=== PATIENT | female | born 1950 | race Caucasian/White ===

== ENCOUNTER 2025-04-06 21:52 | Observation (INO) | payer MEDICARE, OTHER, SELFPAY ==
[2025-04-06] VITALS (8 sets, daily range): BP systolic 158–180; BP diastolic 77–90; BMI 27.5
[2025-04-06 16:48] LABS: Hematocrit 40.1 % (37.0-47.0); Hemoglobin 13.9 g/dL (12.0-16.0); Mean Corp Hgb Conc. 34.7 g/dL (33.0-37.0); Mean Corpuscular Volume 88.7 fL (81.0-99.0); Nucleated Red Blood Cells % 0 %; Platelet Count 210 10^3/uL (130-400); Red Cell Dist. Width 14.2 % (11.5-14.5)
[2025-04-06 17:12] LABS: ALT (SGPT) 15 U/L (0-35); AST (SGOT) 21 U/L (14-36); Albumin 4.2 g/dl (3.5-5.0); Alkaline Phosphatase 74 U/L (38-126); Blood Urea Nitrogen 13 mg/dl (7-17); Calcium 8.7 mg/dl (8.4-10.2); Carbon Dioxide 20 mmol/L (22-30); Chloride 111 mmol/L (98-107); Estimated Creatinine Clearance 66 ml/min; Glucose 112 mg/dl (70-99); Potassium 3.7 mmol/L (3.5-5.1); Sodium 138 mmol/L (135-145); Total Protein 6.5 g/dl (6.3-8.2); eGFR > 60.00
[2025-04-06 17:21] LABS: Troponin I < 0.012 ng/ml
--- NOTE | 2025-04-06 17:47 | ED.GENMED ---
History of Present Illness
General
Chief Complaint: Chest Pain
Time Seen by Provider: 04/06/25 16:42
History of Present Illness
History of Present Illness:
75-year-old female presenting to the emergency department for midsternal chest discomfort. Patient reports around 2 PM this afternoon she was doing laundry and had a sharp pain in her chest. Symptoms lasted about 20 minutes, reports a tightening
sensation. She then started to feel pain in the back of her teeth. She denies any history of cardiac disease. She denies ever having this pain in the past. Symptoms have since resolved. She did call medics, administered 4 aspirin prior to
arrival. Symptoms have completely resolved. Denies abdominal pain or GI symptoms. Does note that she ate some chicken tenders prior to onset of symptoms, however has tolerated these in the past without any issue. Denies additional acute medical
complaints
Phy Exam
Physical Exam
Physical Exam:
General: Well-appearing, no clinical signs of dehydration, nontoxic and in no acute distress
HEENT: protecting airway
Neck: appears supple
CV: Normal heart rate, regular rhythm
Resp: No accessory muscle use, no increased work of breathing, lungs clear to auscultation bilaterally
Abd: Soft and non-distended, no tenderness to palpation
Extremities: No deformities, no swelling
Neuro: alert, no focal neurologic deficit
: deferred
Rectal: deferred
Psych: Normal affect
Skin: Intact
Scores
Heart Score for Chest Pain Patients
STEMI patient?: No
History: Moderately Suspicious
ECG: Normal
Age: >/= 65 years
Risk Factors: 1 or 2 Risk Factors
Troponin: </= Normal Limit
Heart Score for Chest Pain Patients: 4
Heart Score Risk: 20.3% MACE over next 6 weeks
Course
Orders/Labs/Results
Orders:
Orders
04/06/25 16:36
Electrocardiogram (*1) Urgent
Reason for Study: Chest Pain
EKG- Treatment ONCE
04/06/25 16:40
Complete Blood Count/With Diff Urgent
Comprehensive Metabolic Panel Urgent
Troponin I Urgent
04/06/25 17:20
Chest [CR Chest - 2 Views ] Urgent
Comment:
Reason For Exam: chest pain
04/06/25 17:25
EKG- Treatment ONCE
04/06/25 19:38
Troponin I Urgent
04/06/25 21:40
Electrocardiogram (*1) Urgent
Reason for Study: Chest Pain
Abnormal Lab Results
04/06/25
16:40
Chloride 111 H mmol/L
(98-107)
Carbon Dioxide 20 L mmol/L
(22-30)
Glucose 112 H mg/dl
(70-99)
04/06/25 16:40
04/06/25 16:40
Vital Signs
Initial and Last Documented VS:
Initial Vital Signs
Temp Pulse Resp BP Pulse Ox
98.2 F 78 18 167/84 98
04/06/25 16:32 04/06/25 16:32 04/06/25 16:32 04/06/25 16:32 04/06/25 16:32
Last Documented Vital Signs
Temp Pulse Resp BP Pulse Ox
98.2 F 64 18 161/83 98
04/06/25 16:32 04/06/25 19:00 04/06/25 19:00 04/06/25 19:00 04/06/25 17:47
MDM/Problems Addressed
MDM/Problems Addressed:
75-year-old female presenting for episode of chest tightness prior to arrival. Vital signs significant for hypertension.
On exam, patient is resting comfortably, currently asymptomatic. EKG is nonischemic. However, concerning story. No significant cardiac risk factors. Will obtain laboratory analysis including troponin and chest x-ray imaging and continue to
closely monitor.
18:45 - Initial troponin is negative, chest x-ray without acute cardiopulmonary disease. Remains asymptomatic. Plan for repeat troponin and repeat EKG within 3-hour interval
20:35 - Repeat EKG with subtle dynamic changes with now T wave inversions in the inferior leads. Repeat troponin undetectable. Discussion with cardiology, plan for admission. Patient remained stable, mildly hypertensive. Cardiology recommending
repeat troponin in 6 hours.
*Pulse Oximetry
SaO2: 98
Oxygen Mode of Delivery: Room air
Patient hypoxic: no
*EKG
Interpreted by ED Provider?: Yes
EKG Intrepretation Date: 04/06/25
EKG Intrepretation Time: 19:07
Interpretation: normal
Heart Rate: 76
Rate: normal
Rhythm: sinus
[place]: normal axis
Interval: normal interval
QRS Pattern: normal QRS
Ischemia: no ischemia
*Critical Care Note
Total Time (30-74mins, 75-104mins- exclusive of procedures): Not Applicable
ED Attending Note
-
Portions of this chart may have been created with voice recognition software.� Occasional wrong word or��sound alike� substitutions may have occurred due to the inherent limitations of voice recognition software.
Discharge Plan
Departure
Referrals:
Kendall Ledesma MD [Family Provider, [facility]]
Interventions
Interventions:
*Risk Screen - Suicide Last Done: 04/06/25 16:32
*General Assessment Last Done: 04/06/25 16:32
*Neglect/Abuse Screening Last Done: 04/06/25 16:32
ED- Cardiac Assessment Last Done: 04/06/25 17:00
Discharge Date and Time
Print Language: CYMRAES
[2025-04-06 20:14] LABS: Troponin I < 0.012 ng/ml
--- NOTE | 2025-04-06 20:43 | HPS.HSE ---
Family Physician
-
Family Physician: Kendall Ledesma
Chief Complaint
-
chest pain
History of Present Illness
Patient is a 75-year-old female with past medical history significant for hyperlipidemia who presented to [facility] ED for evaluation of chest pain. Patient reports that she was gathering some items in her basement came up the steps, put somethings
together and than sat down with epigastric chest discomfort that radiated to bilateral jawlines. She denies any other symptoms. Patient denies any previous episode similar to this. Denies recent illness, fever, chills, cough, shortness of breath,
nausea, vomiting or change in bowel or bladder.
Medical History
Past Medical History
Past Medical History: Reports Other
Additional Past Medical History:
hyperlipidemia
Past Surgical History: Reports Other
Additional Past Surgical History:
appendectomy
tonsillectomy
cholecystectomy
Social History
Tobacco: Non-smoker
Alcohol: Occasional
Drug: None
Living: Alone
Family History
Family History: Other (Mother: Breast Ca; Father: CAD )
Allergies / Home Medications
Allergies reflects when Allergies were last updated in [employer].
Home Medications with original date entered in [employer]
Allergy/Medication List:
Allergies
Allergy/AdvReac Type Severity Reaction Status Date / Time
coffee (Coffea arabica) Allergy Rash Verified 04/06/25 16:32
Sulfa (Sulfonamide Allergy Rash Verified 04/06/25 16:32
Antibiotics)
Home Medications
CoQ-10 300 mg PO DAILY 04/06/25
Unknown Vitamins/Supplements 1 dose PO NOON 04/06/25
pitavastatin calcium 4 mg tablet (Livalo) 4 mg PO DAILY 04/06/25
therapeutic multivitamin 1 tab PO NOON 04/06/25
Review of Systems
-
History Source: Patient
Constitutional: Reports No Symptoms
EENT: Reports No Symptoms
Respiratory: Reports No Symptoms
Cardiac: Reports Chest Pain (radiated from epigastric to jaw )
Abdomen/GI: Reports No Symptoms
: Reports No Symptoms
Musculoskeletal: Reports No Symptoms
Skin: Reports No Symptoms
Neurological: Reports No Symptoms
Endocrine: Reports No Symptoms
Hematologic/Lymphatic: Reports No Symptoms
Psych: Reports No Symptoms
Physical Exam
Vital Signs
Vital Signs
Temp Pulse Resp BP Pulse Ox
98.2 F 64 18 161/83 98
04/06/25 16:32 04/06/25 19:00 04/06/25 19:00 04/06/25 19:00 04/06/25 17:47
Physical Exam
General: Well Developed, Well Nourished and No Apparent Distress
HEENT: NormoCephalic, Moist mucous membranes and Atraumatic
Respiratory: Clear and Non Labored Respirations
Cardiac: S1/S2 and Regular Rhythm
GI: Soft, Non Tender, Non Distended and Normal Bowel Sounds
Rectal: Deferred by Provider
Genito-urinary: Deferred by me
Musculoskeletal: No Clubbing, No Cyanosis and No Edema
Skin: Warm and IV/Catheter Site
Neuro: Awake, AO x 3 and Nonfocal/grossly intact
Psych: Calm and Intact Judgment/Insight
Laboratory Results
-
04/06/25 16:40
04/06/25 16:40
Laboratory Results
Total Bilirubin 0.7 mg/dl (0.2-1.3) 04/06/25 16:40
AST 21 U/L (14-36) 04/06/25 16:40
ALT 15 U/L (0-35) 04/06/25 16:40
Alkaline Phosphatase 74 U/L (38-126) 04/06/25 16:40
Troponin I Cancelled 04/06/25 21:40
Data Reviewed
-
Diagnostic Radiology: Report Reviewed by me (CXR: No acute cardiopulmonary abnormality.)
Medical Tests (Nuc Med, Echo, EKG etc): Report Reviewed by me (EKG: SINUS RHYTHM WITH 1ST DEGREE A-V BLOCK ABNORMAL QRS-T ANGLE, CONSIDER PRIMARY T WAVE ABNORMALITY)
Lab Data: Labs Reviewed by me
Impression/Plan
-
IMPRESSION/PLAN:
#chest pain
Trop <0.012, 0.012
EKG: SINUS RHYTHM WITH 1ST DEGREE A-V BLOCK
ABNORMAL QRS-T ANGLE, CONSIDER PRIMARY T WAVE ABNORMALITY
CXR: No acute cardiopulmonary abnormality.
- Admit to telemetry
- Consult Cardiology
- trend troponin
#hyperlipidemia
- continue pitavastatin
Code status: full code
DVT prophylaxis: lovenox sq
--- NOTE | 2025-04-06 20:55 | W.PN.UPDATE ---
Update Note
Progress Note Update
Patient seen in conjunction with [facility]OCI[facility]. I agree with findings on history and physical. I concur with assessment and plan unless stated otherwise.
Is a 75-year-old female with past medical history of hyperlipidemia who presents to the emergency department with episode of chest pain. She reported that this occurred while she was doing laundry and lasted for about 20 minutes radiating to the
jaw. She currently is chest pain-free. She had gotten a dose of aspirin 324 mg prior to arrival.
Denies prior history of CAD. Denies any recent injuries of exertional chest pain, exertional dyspnea, shortness of breath orthopnea PND or palpitations. Push
Lower extremity swelling.
In the emergency room she was hypertensive to 161/83 otherwise vital signs were stable. ECG shows sinus rhythm at a rate of [address] or T wave changes. The 1st and 2nd troponins were negative. CBC was completely unremarkable.
Electrolytes were normal. BUN and creatinine were normal.
On evaluation of the ECG she had slight T wave abnormality in lead III which seems to have gone from flattened to normal on repeat.
Assessment and plan
75-year-old female without any known history of CAD presents with feel atypical chest pain now resolved. ECG appears to me to be unremarkable. She has 2 negative troponins. Case discussed with cardiology who recommended admission
- Admit to telemetry observation
- Nitroglycerin as needed chest pain
- Checking lipid panel, A1c
- Echocardiogram in a.m.
- Continue to trend troponin/ECG in 6hours
- Cardiology consult
- Continue statin for now
- Continue aspirin 81 mg daily for now
DVT prophylaxis�Lovenox subcu
CODE STATUS�full code
[2025-04-07 00:18] LABS: Troponin I < 0.012 ng/ml
[2025-04-07 03:08] VITALS: BP 156/88
[2025-04-07 06:01] LABS: Blood Urea Nitrogen 13 mg/dl (7-17); Calcium 8.8 mg/dl (8.4-10.2); Carbon Dioxide 24 mmol/L (22-30); Chloride 113 mmol/L (98-107); Estimated Creatinine Clearance 77 ml/min; Glucose 99 mg/dl (70-99); HDL Cholesterol 58 mg/dl; LDL Cholesterol, Calculated 100 mg/dl; Potassium 4.0 mmol/L (3.5-5.1); Sodium 139 mmol/L (135-145); Very Low Density Lipoprotein 20 mg/dl (0-30); eGFR > 60.00
[2025-04-07 06:05] LABS: Troponin I < 0.012 ng/ml
[2025-04-07 07:30] VITALS: BP 157/85
[2025-04-07 09:00] LABS: Hepatitis C Antibody Negative (Negative)
--- NOTE | 2025-04-07 09:07 | CON.CAR ---
Consultation
Consultation Request
Date/Time Consultation Requested: April 06, 2025 8:30 PM
Date/Time Consultation Performed: April 07, 2025 8 AM
Requesting Provider: Hospitalist
Performing Provider: Jim Ferro
Reason for Consultation: Chest pain
Medical History
-
Chief Complaint: Chest pain
History of Present Illness:
75-year-old female with past medical history of dyslipidemia who is here because of sudden onset of chest pain. She tells me that she had the onset of chest pain after doing laundry and organizing things in her basement. She was not necessarily
moving about when this occurred. It started in the epigastric area was significant and then went up into her jaw. When she felt it in her jaws when she became nervous. She then took 4 baby aspirin and called the ambulance. Her symptoms lasted
approximately 20 to 25 minutes. They resolved thereafter and she was brought to [facility]. There is no associated symptoms including shortness of breath, diaphoresis, or other lower extremity edema. Otherwise, she has felt fine. Workup
in the emergency room showed with serial EKGs inferior T wave inversion which have since resolved. Her troponins have all been normal.
Past Medical History
Past Medical History: Other (Dyslipidemia)
Past Surgical History: Appendectomy, Cholecystectomy and Other (Tonsillectomy)
Social History
Tobacco: Non-Smoker
Alcohol: Occasional
Drug: None
Personal:
Living: Alone
Employment: Retired
Allergies / Home Medications
Allergy/AdvReac Type Severity Reaction Status Date / Time
coffee (Coffea arabica) Allergy Rash Verified 04/06/25 16:32
Sulfa (Sulfonamide Allergy Rash Verified 04/06/25 16:32
Antibiotics)
�Medication �Instructions �Recorded �Confirmed �Type
CoQ-10 300 mg PO DAILY 04/06/25 04/06/25 History
Unknown Vitamins/Supplements 1 dose PO NOON 04/06/25 04/06/25 History
pitavastatin calcium 4 mg tablet 4 mg PO DAILY 04/06/25 04/06/25 History
(Livalo)
therapeutic multivitamin 1 tab PO NOON 04/06/25 04/06/25 History
Review of Systems
-
All other systems: Negative unless noted
Physical Exam
Vital Signs
Temp Pulse Resp BP Pulse Ox
98.1 F 67 18 157/85 96
04/07/25 07:30 04/07/25 07:30 04/07/25 07:30 04/07/25 07:30 04/07/25 07:30
Lab Results
04/06/25 16:40
04/07/25 05:00
Troponin I < 0.012 ng/ml 04/07/25 05:01
Physical Exam
General: Well Developed and Well Nourished
HEENT: Normocephalic
Respiratory: Clear
GI: Soft
Skin: Warm and Dry
Neuro: AO x 3
Psych: Calm
Impression / Plan
-
A/P: 75-year-old female with past medical history of dyslipidemia who is here for the evaluation of chest pain.
Chest pain
- Troponins are normal
- Further evaluation with nuclear exercise stress test
- Echocardiogram
- Further recommendations to follow studies
Dyslipidemia
- Continue Livalo
Data Reviewed
-
EKG: Tracing Personally Visualized and interpreted (sr)
Labs: Labs Reviewed by me
[2025-04-07 11:26] LABS: Glycohemoglobin (HgbA1c) 5.5 % (4.0-5.6)
[2025-04-07 11:40] VITALS: BP 132/85
[2025-04-07] MEDS: LIPITOR 20 MG PO (13:37)
[2025-04-07 15:28] VITALS: BP 122/68
--- NOTE | 2025-04-07 15:56 | W.DCSUMMARY ---
Discharge Summary
Discharge Data
Date of Admission: 04/06/25
Date of Discharge: 04/07/25
Total time spent discharging patient (in min): 40
-
Pending Results: No
Hospital Course
Ms. Hensley is a 75-year-old female with a medical history of dyslipidemia who presented with epigastric pain radiated to her jaw. She took 4 baby aspirin and called EMS. Her symptoms resolved within 30 minutes. She denied shortness of breath,
nausea/vomiting, abdominal pain, or lower extremity swelling. She has had no similar symptoms previously. Her blood pressure was slightly elevated in the ED. Her troponins were negative x 2 and her EKG showed no acute changes. Her electrolytes
were within normal limits. Her lipid panel and hemoglobin A1c were also within normal limits. She was admitted for further evaluation and management.
She remained on telemetry monitoring and was evaluated by cardiology. She underwent nuclear perfusion stress test which showed no evidence of ischemia. She remained asymptomatic and hemodynamically stable. She will be discharged to home and
should follow-up with her primary care physician for ongoing monitoring.
General: No Apparent Distress, Comfortable and Conversant
HEENT: NormoCephalic, Moist mucous membranes, Atraumatic
Respiratory: Clear and Non Labored Respirations
Cardiac: S1/S2 and Regular Rhythm; No Rub or Gallop
GI: Soft, Non Tender, Non Distended and Normal Bowel Sounds
Musculoskeletal: No Edema, no deformity
: NO Garcia
Neuro: Awake, Alert, Nonfocal/grossly intact
Psych: Calm and Intact Judgment/Insight
Discharge Plan
-
Patient Disposition: Home (Routine Discharge)
Discharge Diagnosis/Procedures: Chest pain
Activity Restrictions/Additional Instructions:
Ms. Hensley is a 75-year-old female with a medical history of dyslipidemia who presented with epigastric pain radiated to her jaw. She took 4 baby aspirin and called EMS. Her symptoms resolved within 30 minutes. She denied shortness of breath,
nausea/vomiting, abdominal pain, or lower extremity swelling. She has had no similar symptoms previously. Her blood pressure was slightly elevated in the ED. Her troponins were negative x 2 and her EKG showed no acute changes. Her electrolytes
were within normal limits. Her lipid panel and hemoglobin A1c were also within normal limits. She was admitted for further evaluation and management.
She remained on telemetry monitoring and was evaluated by cardiology. She underwent nuclear perfusion stress test which showed no evidence of ischemia. She remained asymptomatic and hemodynamically stable. She will be discharged to home and
should follow-up with her primary care physician for ongoing monitoring.
Referrals:
Kendall Ledesma MD [Family Provider, [facility]]
Prescriptions:
Continued
pitavastatin calcium [Livalo] 4 mg Tablet
4 mg PO DAILY
therapeutic multivitamin Tablet
1 tab PO NOON
CoQ-10 300 mg capsule
300 mg PO DAILY
Unknown Vitamins/Supplements
1 dose PO NOON
Patient Comments:
04/06/2025, pt. states to be taking several vitamins and supplements but she does not know which ones they are.
Discharge Orders:
Discharge Patient (As Directed); Ordered 04/07/25
Ordered By: Bryon Aguilar
Discharge Date and Time
Print Language: DJIBOUTIAN
--- NOTE | 2025-04-07 16:07 | CM ---
Alert awake oriented patient who lives at independent living at [facility] . She is independent in activates of daily living.She does drive .She uses no adaptive devices.[facility] letter given explained signed on chart.Dgt Yecenia will drive her home.
No VN in past . No SNF hx
Pharmacy [facility]
PCP Dr Ledesma
PLAN Home with no needs
--- NOTE | 2025-04-07 16:19 | CM ---
Alert awake oriented patient who lives in a 2 story home with 2 steps into enter and lives on first floor. . She is independent in activates of daily living.She does drive .She uses no adaptive devices.[facility] letter given explained signed on chart.Dgt
Yecenia will drive her home.
No VN in past . No SNF hx
Pharmacy [facility]
PCP Dr Ledesma
PLAN Home with no needs
== END 2025-04-07 16:40 | disposition home or self-care (01) ==
LOC: 4 EAST ACU 21:52
PROVIDERS: Internal Medicine Cardiovascular Disease; Nurse Practitioner Family; ADMITTING PHYSICIAN Internal Medicine; ATTENDING PHYSICIAN Internal Medicine; CONSULT PHYSICIAN Internal Medicine Cardiovascular Disease; EMERGENCY PHYSICIAN Student in an Organized Health Care Education/Training Program; FAMILY PHYSICIAN Family Medicine
PROC: 4A02XM4 Measurement of Cardiac Total Activity, External Approach (ICD-10-PCS; 2025-04-07)
DX: R07.89 Other chest pain (principal); E78.5 Hyperlipidemia, unspecified; R10.13 Epigastric pain
CPT/HCPCS: 71046; 78452; 80048; 80053; 80061; 83036; 84484; 85025; 86803; 93005; 93017; 99285; A9500; G0378

== ENCOUNTER → 2025-08-23 11:00 | Outpatient (REF) | payer MEDICARE, OTHER, SELFPAY | LOC: PAVMRI 11:00 | PROVIDERS: ATTENDING PHYSICIAN Psychiatry & Neurology Neurology; FAMILY PHYSICIAN Family Medicine | DX: R90.89 Other abnormal findings on diagnostic imaging of central nervous system (principal) | CPT/HCPCS: 70553; A9575 ==